=== PATIENT | female | born 1960 | race Caucasian/White ===

== ENCOUNTER → 2018-07-15 07:58 | Outpatient (CLI) | payer OTHER, SELFPAY ==
--- NOTE | 2018-07-15 | DI.MG.S_ITS ---
BILATERAL DIGITAL SCREENING MAMMOGRAM 3D/2D WITH CAD: 07/15/2018 CLINICAL: Routine screening. Family history of breast cancer. Comparison is made to exams dated: 07/01/2017 mammogram, 06/16/2016 mammogram, and 06/25/2015 mammogram - [facility]. The tissue of both breasts is heterogeneously dense. This may lower the sensitivity of mammography. Current study was also evaluated with a Computer Aided Detection (CAD) system. No significant masses, calcifications, or other findings are seen in either breast. There has been no significant interval change. IMPRESSION: NEGATIVE There is no mammographic evidence of malignancy. A 1 year screening mammogram is recommended. This exam was interpreted at Station ID: [id number]. NOTE: For mammograms, a report in lay terms will be sent to the patient. Approximately 15% of breast malignancies will not be visualized mammographically. In the management of a palpable breast mass, a negative mammogram must not discourage biopsy of a clinically suspicious lesion. Electronically Signed By: Melvin daniels/serenity:07/17/2018 21:30:37 letter sent: Normal Exam ACR BI-RADS Category 1: Negative 3341F
[2018-07-15 08:18] LABS: Add Manual Diff / Slide Review NO; Basophils Percent Auto 0.7 % (0-2); Eosinophils Percent Auto 1.7 % (2-4); Hemoglobin 14.3 g/dL (12.0-16.0); Lymphocytes Percent Auto 36.8 % (25-40); Mean Corpuscular HGB Conc 34.1 % (30-36); Mean Corpuscular Hemoglobin 32.1 PG (26-34); Mean Corpuscular Volume 94.2 fL (80-100); Monocytes Percent Auto 6.4 % (3-14); Neutrophils Absolute Auto 2700 /uL (3000-5900); Neutrophils Percent Auto 54.4 % (50-75); Platelet Count 228 X10^3/uL (150-400); Red Blood Cell Count 4.46 X10^6/uL (4.0-5.2); Red Cell Distribution Width 12.4 % (11.6-14.8); White Blood Cell Count 4.9 X10^3/uL (4.5-11.0)
[2018-07-15 08:34] LABS: Alanine Aminotransferase 39 IU/L (9-52); Albumin 4.7 g/dL (3.5-5.0); Albumin Globulin Ratio 1.7 (1.0-2.8); Alkaline Phosphatase 55 U/L (38-126); Aspartate Aminotransferase 36 IU/L (14-36); Bilirubin Total 0.8 mg/dL (0.2-1.3); Blood Urea Nitrogen 24 mg/dL (7-17); Calcium 10.2 mg/dL (8.4-10.2); Carbon Dioxide 31 mmol/L (22-32); Chloride 107 mmol/L (98-107); Cholesterol 201 mg/dL (140-199); Estimated Glomerular Filt Rate > 60.0 mL/min (>60); Globulin 2.7 g/dL (1.7-4.1); Glucose 107 mg/dL (70-100); HDL Cholesterol 47 mg/dL (40-60); HEMOLYSIS < 15 (0-50); LDL Cholesterol Calculated 133 mg/dL (<100); Potassium 4.8 mmol/L (3.4-5.1); Sodium 148 mmol/L (137-145); Total Protein 7.4 g/dL (6.3-8.2); Triglycerides 103 mg/dL (35-150)
[2018-07-15 09:31] LABS: Thyroid Stimulating Hormone 0.98 uIU/mL (0.47-4.68)
== END ==
PROVIDERS: Family Provider Internal Medicine; PCP Internal Medicine; Visit Provider Internal Medicine
DX: Z12.31 Encounter for screening mammogram for malignant neoplasm of breast (principal); Z80.3 Family history of malignant neoplasm of breast; E03.9 Hypothyroidism, unspecified; E78.5 Hyperlipidemia, unspecified
CPT/HCPCS: 36415; 77063; 77067; 80053; 80061; 84443; 85025

== ENCOUNTER → 2019-06-15 10:26 | Outpatient (CLI) | payer OTHER, SELFPAY ==
--- NOTE | 2019-06-15 | DI.MG.S_ITS ---
BILATERAL DIGITAL SCREENING MAMMOGRAM 3D/2D WITH CAD: 06/15/2019 CLINICAL: Routine screening. Family history of breast cancer. Comparison is made to exams dated: 07/15/2018 mammogram, 07/01/2017 mammogram, and 06/16/2016 mammogram - [facility]. There are scattered fibroglandular elements in both breasts. Current study was also evaluated with a Computer Aided Detection (CAD) system. No significant masses, calcifications, or other findings are seen in either breast. There has been no significant interval change. IMPRESSION: NEGATIVE There is no mammographic evidence of malignancy. A 1 year screening mammogram is recommended. This exam was interpreted at Station ID: [id number]. NOTE: For mammograms, a report in lay terms will be sent to the patient. Approximately 15% of breast malignancies will not be visualized mammographically. In the management of a palpable breast mass, a negative mammogram must not discourage biopsy of a clinically suspicious lesion. Electronically Signed By: Nirmal simmons/serenity:06/15/2019 11:36:53 letter sent: Normal Exam ACR BI-RADS Category 1: Negative 3341F
== END ==
PROVIDERS: Family Provider Internal Medicine; PCP Internal Medicine; Visit Provider Internal Medicine
DX: Z12.31 Encounter for screening mammogram for malignant neoplasm of breast (principal); Z80.3 Family history of malignant neoplasm of breast
CPT/HCPCS: 77063; 77067

== ENCOUNTER → 2019-08-23 07:46 | Outpatient (CLI) | payer OTHER, SELFPAY ==
--- NOTE | 2019-08-23 | DI.RAD.S_ITS ---
PROCEDURE: XR KNEE LT 3V INDICATIONS: LEFT KNEE PAIN TECHNIQUE: 3 views of the knee were acquired. COMPARISON: [facility], , KNEE 3V LEFT, 09/29/2016, 15:53. FINDINGS: Bones: No fractures or dislocations. Tiny osteophytes. Mild medial compartment joint space narrowing similar the prior exam from 2016. No suspicious bony lesions. Soft tissues: No joint effusion. No suspicious soft tissue calcifications. IMPRESSION: No fracture or dislocation. Mild osteoarthritis most pronounced in the medial compartment. Dictated by: Reilly Lew M.D. on 08/23/2019 at 8:36 Approved by: Reilly Lew M.D. on 08/23/2019 at 8:38
== END ==
PROVIDERS: Family Provider Internal Medicine; PCP Internal Medicine; Visit Provider Internal Medicine
DX: M25.562 Pain in left knee (principal); M17.12 Unilateral primary osteoarthritis, left knee
CPT/HCPCS: 73562

== ENCOUNTER → 2020-06-19 16:42 | Outpatient (CLI) | payer OTHER, SELFPAY ==
--- NOTE | 2020-06-19 16:45 | DI.MG.S_ITS ---
BILATERAL DIGITAL SCREENING MAMMOGRAM 3D/2D WITH CAD: 06/19/2020 CLINICAL: Routine screening. Family history of breast cancer. Comparison is made to exams dated: 06/15/2019 mammogram, 07/15/2018 mammogram, and 07/01/2017 mammogram - [facility]. There are scattered fibroglandular elements in both breasts. Current study was also evaluated with a Computer Aided Detection (CAD) system. No significant masses, calcifications, or other findings are seen in either breast. There has been no significant interval change. IMPRESSION: NEGATIVE There is no mammographic evidence of malignancy. A 1 year screening mammogram is recommended. This exam was interpreted at Station ID: [id number]. NOTE: For mammograms, a report in lay terms will be sent to the patient. Approximately 15% of breast malignancies will not be visualized mammographically. In the management of a palpable breast mass, a negative mammogram must not discourage biopsy of a clinically suspicious lesion. Electronically Signed By: Sanjay blevins/serenity:06/19/2020 17:11:36 letter sent: Normal Exam ACR BI-RADS Category 1: Negative 3341F
== END ==
PROVIDERS: Family Provider Internal Medicine; PCP Internal Medicine; Referring Provider Internal Medicine; Visit Provider Internal Medicine
DX: Z12.31 Encounter for screening mammogram for malignant neoplasm of breast (principal); Z80.3 Family history of malignant neoplasm of breast
CPT/HCPCS: 77063; 77067

== ENCOUNTER → 2020-09-03 11:19 | Outpatient (CLI) | payer OTHER, SELFPAY ==
--- NOTE | 2020-09-03 11:27 | DI.RAD.S_ITS ---
PROCEDURE: XR FINGER RT MIN 2V INDICATIONS: POINTER FINGER RIGHT PAIN TECHNIQUE: AP hand, 2 views of the 2nd finger(s) acquired. COMPARISON: None. FINDINGS: Bones: No fractures or dislocations. No suspicious bony lesions. Soft tissues: No suspicious soft tissue calcifications. IMPRESSION: No trauma found. Mild degenerative osteoarthritic change at the distal interphalangeal joint. Dictated by: Lee Harding M.D. on 09/03/2020 at 11:49 Approved by: Lee Harding M.D. on 09/03/2020 at 11:50
== END ==
PROVIDERS: Family Provider Internal Medicine; PCP Internal Medicine; Referring Provider Internal Medicine; Visit Provider Internal Medicine
DX: M79.644 Pain in right finger(s) (principal)
CPT/HCPCS: 73140

== ENCOUNTER → 2021-06-23 10:26 | Outpatient (CLI) | payer OTHER, SELFPAY ==
--- NOTE | 2021-06-23 | DI.MG.S_ITS ---
BILATERAL DIGITAL SCREENING MAMMOGRAM 3D/2D WITH CAD: 06/23/2021 CLINICAL: Routine screening. Family history of breast cancer. Comparison is made to exams dated: 06/19/2020 mammogram, 06/15/2019 mammogram, and 07/15/2018 mammogram - [facility]. There are scattered fibroglandular elements in both breasts. Current study was also evaluated with a Computer Aided Detection (CAD) system. No significant masses, calcifications, or other findings are seen in either breast. There has been no significant interval change. IMPRESSION: NEGATIVE There is no mammographic evidence of malignancy. A 1 year screening mammogram is recommended. This exam was interpreted at Station ID: [id number]. NOTE: For mammograms, a report in lay terms will be sent to the patient. Approximately 15% of breast malignancies will not be visualized mammographically. In the management of a palpable breast mass, a negative mammogram must not discourage biopsy of a clinically suspicious lesion. Electronically Signed By: Ady velasquez/serenity:06/23/2021 11:08:09 letter sent: Normal Exam ACR BI-RADS Category 1: Negative 3341F
== END ==
PROVIDERS: Family Provider Internal Medicine; PCP Internal Medicine; Referring Provider Internal Medicine; Visit Provider Internal Medicine
DX: Z12.31 Encounter for screening mammogram for malignant neoplasm of breast (principal); Z80.3 Family history of malignant neoplasm of breast
CPT/HCPCS: 77063; 77067

== ENCOUNTER → 2021-06-25 08:45 | Outpatient (CLI) | payer OTHER, SELFPAY ==
[2021-06-25 12:10] LABS: COVID19 -Nasal RAPID Negative (Negative)
== END ==
PROVIDERS: Family Provider Internal Medicine; PCP Internal Medicine; Visit Provider Nurse Practitioner
DX: Z20.822 Contact with and (suspected) exposure to COVID-19 (principal); Z01.812 Encounter for preprocedural laboratory examination
CPT/HCPCS: 87635

== ENCOUNTER 2021-06-27 12:02 | Day surgery (SDC) | payer OTHER, SELFPAY ==
--- NOTE | 2021-06-27 12:18 | P.HP_ITS ---
History of Present Illness History of Present Illness Date Patient Seen: 06/27/21 Chief complaint: SCREENING COLONOSCOPY Narrative: 60 Years Old Female seen today for consideration of a screening colonoscopy. Last colonoscopy 09/02/2011, normal. There have been no lower GI symptoms suggesting disease such as change in bowel habits, bleeding, abdominal pain or anemia. There's been no family history of colon cancer or colon polyps. Overall health issues have been stable, including no major cardiac events for at least 6 weeks. 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 Patient History Medical History Anemia Asthma (~1976) Chicken pox Eczema (~1976) Fractures (~1974) Hypothyroidism (~1966) Plantar warts (~1999) Recurrent sinusitis (~2007) Seasonal allergies (~1976) Seizure (~1966) Surgical History Anesthesia History of tonsillectomy (~1974) Status post hysterectomy (~1990) Family & Social History Family History Child Age: 32 Depression Father Age: 83 Hypertension Hyperlipidemia Depression Osteoporosis Polio Mother Age: 81 Depression Hypertension Hyperlipidemia Tobacco & Substance use: Smoking Status Never smoker Meds Home Medications and Allergies Home Medications Medication Instructions Recorded Confirmed Type magnesium oxide 500 mg tablet 500 mg PO QDAY #0 07/28/16 06/27/21 History multivitamin (Multiple Vitamins) 1 tab PO QDAY #0 07/20/17 06/27/21 History clobetasol 0.05 % topical ointment 0 TOPICAL SEE INSTRUCTIONS #1 tube 09/14/17 01/19/21 Rx estradiol 0.5 mg tablet 0.5 mg PO QDAY #90 tab 07/25/18 06/27/21 Rx fenofibrate 54 mg tablet 108 mg PO DAILY #180 tab 07/25/18 06/27/21 Rx levothyroxine 125 mcg tablet 125 mcg PO QDAY #90 tab 07/25/18 06/27/21 Rx (Synthroid) varicella-zoster glycoE vacc-[id number] 0.5 ml IM ONCE #1 each 07/25/18 01/19/21 Rx adj(PF) 50 mcg/0.5 mL IM susp, kit (Shingrix (PF)) fluticasone propionate 50 1 spray INTRANASAL QDAY #16 gram 09/19/18 06/27/21 Rx mcg/actuation nasal spray,suspension albuterol sulfate 90 mcg/actuation 1 puff INH SEE INSTRUCTIONS PRN 06/27/21 06/27/21 History aerosol inhaler (Ventolin HFA) MDD unknown Allergies Allergy/AdvReac Type Severity Reaction Status Date / Time No Known Drug Allergies Allergy Verified 06/27/21 12:20 Review of Systems Review of Systems Narrative: See HPI. Exam Narrative Exam Narrative: General: well developed, well nourished, in no acute distress, Head: normocephalic and atraumatic, Lungs: normal respiratory effort, clear bilaterally to auscultation, no wheezes rales or rhonchi. Heart: normal rate and regular rhythm, no murmurs, rubs, gallops, or clicks, Abdomen: abdomen soft and non-tender without masses, organomegaly, or abdominal wall hernias, bowel sounds positive. Skin: intact without suspicious lesions or rashes, Psych: alert and cooperative; normal mood and affect; normal attention span and concentration; cognition, remote and recent memory appear to be intact, Assessment & Plan Assessment & Plan narrative: 1. Screening for colon cancer Plan for colonoscopy. The nature and character of the procedure as well as anticipated results were discussed. The possibility of not completing the procedure was also discussed. Possible complications including aspiration pneumonia, bleeding, perforation and reaction to medications either for sedation or preparation and missed lesions were discussed. Questions were answered and proceeding to the colonoscopy was elected. Informed consent signed. I sincerely appreciate the referral allowing me to participate in this patient's care. Please contact me with any questions or concerns.
--- NOTE | 2021-06-27 12:20 | PM.OP.ENDO ---
Operative Date/Time/Diagnoses Date of procedure: 06/27/21 Procedure Notes SCOAP/Timeout: 1:57 p.m. Procedure in detail: ENDOSCOPIST: Mariah De La Cruz MD Sedation RN: Tiffanie Espinoza RN Sedation start time: 1:58 p.m. Sedation end time: 2:17 p.m. PROCEDURE: Colonoscopy INDICATIONS: 1. Screening for colon cancer MEDICATION: Levsin 0.125 mg sublingual, incremental doses of Versed and fentanyl until appropriate level sedation achieved. ASA CLASS: 2 CECAL WITHDRAWAL TIME: 6 minutes COMPLICATIONS: None. EXTENT OF PROCEDURE: Cecum. QUALITY OF PREP: Good with portions of liquid stool. PROCEDURE: Prior to insertion of the colonoscope, a digital rectal examination was accomplished with circumferential palpation of the distal rectal mucosa without significant findings being noted. The high-definition pediatric colonoscope was passed into the rectum in the usual fashion and advanced over to the cecum without difficulty. The ileocecal valve, appendiceal stoma, and medial wall all could be inspected and no abnormalities were seen. ASCENDING COLON: As the colonoscope was withdrawn, care was taken to expose and inspect the haustral folds and no abnormalities were seen. HEPATIC FLEXURE: Normal, no polyps, diverticula or other abnormalities. TRANSVERSE COLON: Normal, no polyps, diverticula or other abnormalities. DESCENDING COLON: Normal, no polyps, diverticula or other abnormalities. SIGMOID COLON: Normal, no polyps, diverticula or other abnormalities. RECTUM: Normal. J maneuver was produced. There was no significant perianal disease. The J maneuver was broken. The remainder of the rectum was inspected and there was no external hemorrhoid disease. The scope was withdrawn. IMPRESSION: 1. Normal colonoscopy PLAN: 1. Repeat colonoscopy in 10 years. The possibility of a missed lesion including a malignancy has been discussed with the patient previously. Potential alarm symptoms have been discussed and should be reported immediately.
[2021-06-27 12:26] VITALS: BMI 31.1
[2021-06-27 12:48] VITALS: BP 129/72; PULSE 52; RESP 16; TEMP 36.3; O2SAT 97
[2021-06-27] MEDS: LACTATED RINGERS 1,000 ML 200 ML IV (12:53)
[2021-06-27] MEDS: HYOSCYAMINE 0.125 MG TABLET PO (12:57)
[2021-06-27] MEDS: fentaNYL 250 MCG/5 ML INJ IV (14:22)
[2021-06-27] MEDS: MIDAZOLAM 5 MG/5 ML VIAL IV (14:22)
[2021-06-27 14:23] VITALS: BP 110/58; PULSE 63; RESP 18; TEMP 36.4; O2SAT 97
[2021-06-27 14:28] VITALS: BP 105/64; PULSE 43; RESP 16; O2SAT 95
[2021-06-27 14:33] VITALS: BP 113/65; PULSE 42; RESP 18; O2SAT 95
== END 2021-06-27 14:55 | disposition home or self-care (01) ==
PROVIDERS: Family Provider Internal Medicine; PCP Internal Medicine; Referring Provider Student in an Organized Health Care Education/Training Program; Visit Provider Student in an Organized Health Care Education/Training Program
PROC: 0DJD8ZZ Inspection of Lower Intestinal Tract, Via Natural or Artificial Opening Endoscopic (ICD-10-PCS; CPT 45378; principal; 2021-06-27 13:45)
DX: Z12.11 Encounter for screening for malignant neoplasm of colon (principal)
CPT/HCPCS: 45378; J2250; J3010

== ENCOUNTER → 2022-06-24 10:10 | Outpatient (CLI) | payer OTHER, SELFPAY ==
--- NOTE | 2022-06-24 | DI.MG.S_ITS ---
BILATERAL DIGITAL SCREENING MAMMOGRAM 3D/2D WITH CAD: 06/24/2022 CLINICAL: Routine screening. Family history of breast cancer. Comparison is made to exams dated: 06/23/2021 mammogram, 06/19/2020 mammogram, and 06/15/2019 mammogram - [facility]. There are scattered fibroglandular elements in both breasts. Current study was also evaluated with a Computer Aided Detection (CAD) system. No significant masses, calcifications, or other findings are seen in either breast. There has been no significant interval change. IMPRESSION: NEGATIVE There is no mammographic evidence of malignancy. A 1 year screening mammogram is recommended. Based on the Tyrer Cuzick model (a risk assessment model) the patient's lifetime risk is 9.6% and her 10 year risk is 4.0%. According to the ACR, ACS, and NCCN guidelines, an annual breast MRI exam along with mammogram is recommended if the patient's lifetime risk is 20% or greater. This exam was interpreted at Station ID: [id number]. NOTE: For mammograms, a report in lay terms will be sent to the patient. Approximately 15% of breast malignancies will not be visualized mammographically. In the management of a palpable breast mass, a negative mammogram must not discourage biopsy of a clinically suspicious lesion. Electronically Signed By: Robbie Hicks M.D., jr/serenity:06/24/2022 14:14:46 letter sent: Normal Exam ACR BI-RADS Category 1: Negative 3341F
== END ==
PROVIDERS: Family Provider Internal Medicine; PCP Internal Medicine; Referring Provider Internal Medicine; Visit Provider Internal Medicine
DX: Z12.31 Encounter for screening mammogram for malignant neoplasm of breast (principal); Z80.3 Family history of malignant neoplasm of breast
CPT/HCPCS: 77063; 77067

== ENCOUNTER → 2023-03-23 16:54 | Outpatient (CLI) | payer OTHER, SELFPAY ==
--- NOTE | 2023-03-23 16:56 | DI.RAD.S_ITS ---
PROCEDURE: XR ANKLE RT MIN 3V INDICATIONS: Achilles pain on the right TECHNIQUE: 3 views of the ankle were acquired. COMPARISON: [facility] [place], CR, XR FOOT 3+ VIEWS RIGHT, 04/21/2021, 9:58. FINDINGS: Bones: No acute fractures or dislocations. Full-thickness cartilage loss is seen at the medial aspect of the mortise joint with subchondral sclerosis and resulting medial tilting of the talus. Small marginal osteophytes are present. Degenerative changes are also seen at the tarsometatarsal joints and to a lesser extent the navicular cuneiform articulations. No suspicious bony lesions. Tiny plantar calcaneal enthesophyte. Soft tissues: Achilles stripe appears to be within normal limits. IMPRESSION: 1. Severe osteoarthrosis at the medial aspect of the mortise joint. 2. No acute osseous abnormality. Approved by: Sanjay Chambers M.D. on 03/24/2023 at 10:07
== END ==
PROVIDERS: Family Provider Internal Medicine; PCP Internal Medicine; Referring Provider Internal Medicine; Visit Provider Internal Medicine
DX: M19.071 Primary osteoarthritis, right ankle and foot (principal); M25.571 Pain in right ankle and joints of right foot
CPT/HCPCS: 73610

== ENCOUNTER → 2023-06-24 09:55 | Outpatient (CLI) | payer OTHER, SELFPAY ==
--- NOTE | 2023-06-24 | DI.MG.S_ITS ---
BILATERAL DIGITAL SCREENING MAMMOGRAM 3D/2D WITH CAD: 06/24/2023 CLINICAL: Routine screening. Comparison is made to exams dated: 06/24/2022 mammogram, 06/23/2021 mammogram, and 06/19/2020 mammogram - [facility]. There are scattered areas of fibroglandular density in both breasts (category b / 25%-50% glandular tissue). Current study was also evaluated with a Computer Aided Detection (CAD) system. No significant masses, calcifications, or other findings are seen in either breast. There has been no significant interval change. IMPRESSION: NEGATIVE There is no mammographic evidence of malignancy. A 1 year screening mammogram is recommended. Based on the Tyrer Cuzick model (a risk assessment model) the patient's lifetime risk is 9.4% and her 10 year risk is 3.9%. According to the ACR, ACS, and NCCN guidelines, an annual breast MRI exam along with mammogram is recommended if the patient's lifetime risk is 20% or greater. This exam was interpreted at Station ID: [id number]. NOTE: For mammograms, a report in lay terms will be sent to the patient. Approximately 15% of breast malignancies will not be visualized mammographically. In the management of a palpable breast mass, a negative mammogram must not discourage biopsy of a clinically suspicious lesion. Electronically Signed By: Lucy mendenhall/serenity:06/24/2023 14:23:01 letter sent: Normal Exam ACR BI-RADS Category 1: Negative 3341F
== END ==
PROVIDERS: Family Provider Internal Medicine; PCP Internal Medicine; Referring Provider Internal Medicine; Visit Provider Internal Medicine
DX: Z12.31 Encounter for screening mammogram for malignant neoplasm of breast (principal)
CPT/HCPCS: 77063; 77067

== ENCOUNTER → 2024-06-27 09:21 | Outpatient (CLI) | payer OTHER, SELFPAY ==
--- NOTE | 2024-06-27 09:24 | DI.MG.S_ITS ---
BILATERAL DIGITAL SCREENING MAMMOGRAM 3D/2D WITH CAD: 06/27/2024 CLINICAL: Routine screening. Family history of breast cancer. Comparison is made to exams dated: 06/24/2023 mammogram, 06/24/2022 mammogram, and 06/23/2021 mammogram - [facility]. There are scattered areas of fibroglandular density in both breasts (category b / 25%-50% glandular tissue). Current study was also evaluated with a Computer Aided Detection (CAD) system. No significant masses, calcifications, or other findings are seen in either breast. There has been no significant interval change. IMPRESSION: NEGATIVE There is no mammographic evidence of malignancy. A 1 year screening mammogram is recommended. Based on the Tyrer Cuzick model (a risk assessment model) the patient's lifetime risk is 9.1% and her 10 year risk is 4.0%. According to the ACR, ACS, and NCCN guidelines, an annual breast MRI exam along with mammogram is recommended if the patient's lifetime risk is 20% or greater. This exam was interpreted at Station ID: [id number]. NOTE: For mammograms, a report in lay terms will be sent to the patient. Approximately 15% of breast malignancies will not be visualized mammographically. In the management of a palpable breast mass, a negative mammogram must not discourage biopsy of a clinically suspicious lesion. Electronically Signed By: Lucy Madden M.D., Ph.D. joanne/serenity:06/27/2024 12:43:34 letter sent: Normal Exam ACR BI-RADS Category 1: Negative 3341F
== END ==
PROVIDERS: Family Provider Internal Medicine; PCP Internal Medicine; Referring Provider Internal Medicine; Visit Provider Internal Medicine
DX: Z12.31 Encounter for screening mammogram for malignant neoplasm of breast (principal); Z80.3 Family history of malignant neoplasm of breast; R92.323 Mammographic fibroglandular density, bilateral breasts
CPT/HCPCS: 77063; 77067

== ENCOUNTER → 2024-08-07 09:32 | Outpatient (CLI) | payer OTHER, SELFPAY ==
--- NOTE | 2024-08-07 09:35 | EKG_ITS ---
[address] [address] Test Date: 2024-08-07 Pat Name: Dorie Aponte Department: [facility] Room: Gender: Female [employer] Asset Protection Manager: JACQUELINE : 1960 Requested By: Order Number: [id number] Reading MD: Adan Reyes MD Measurements Intervals [place] Rate: 61 P: 55 AR: 164 QRS: -9 QRSD: 108 T: 28 QT: 424 QTc: 426 Interpretive Statements Normal sinus rhythm with sinus arrhythmia Minimal voltage criteria for LVH, may be normal variant ( Phong product ) Electronically Signed On 08-07-2024 12:09:04 PDT by Adan Reyes MD
[2024-08-07 10:24] LABS: Add Manual Diff / Slide Review NO; Basophils Absolute Auto 0 /uL (0-100); Basophils Percent Auto 0.7 % (0-2); Eosinophils Absolute Auto 200 /uL (0-450); Eosinophils Percent Auto 3.7 % (2-4); Hematocrit 37.4 % (36-46); Hemoglobin 12.9 g/dL (12.0-16.0); Lymphocytes Absolute Auto 1700 /uL (1100-4500); Lymphocytes Percent Auto 39.8 % (25-40); Mean Corpuscular HGB Conc 34.6 % (30-36); Mean Corpuscular Volume 95.4 fL (80-100); Monocytes Absolute Auto 300 /uL (0-900); Monocytes Percent Auto 7.8 % (3-14); Neutrophils Absolute Auto 2100 /uL (1500-7000); Platelet Count 183 X10^3/uL (150-400); Red Blood Cell Count 3.92 X10^6/uL (4.0-5.2); Red Cell Distribution Width 12.4 % (11.6-14.8); White Blood Cell Count 4.4 X10^3/uL (4.5-11.0)
[2024-08-07 10:33] LABS: Hemoglobin A1C% w Est Avg Glu 4.8 % (4.0-6.0)
[2024-08-07 10:58] LABS: BUN Creatinine Ratio 25.8 (6-22); Blood Urea Nitrogen 16 mg/dL (7-17); Calcium 9.6 mg/dL (8.4-10.2); Carbon Dioxide 25 mmol/L (22-32); Chloride 107 mmol/L (98-107); Estimated Glomerular Filt Rate > 60 mL/min (>60); Glucose 101 mg/dL (80-110); HEMOLYSIS < 15 (0-50); Potassium 4.3 mmol/L (3.4-5.1); Sodium 140 mmol/L (137-145)
== END ==
PROVIDERS: Family Provider Internal Medicine; PCP Internal Medicine; Referring Provider Orthopaedic Surgery Foot and Ankle Surgery; Visit Provider Orthopaedic Surgery Foot and Ankle Surgery
DX: Z01.818 Encounter for other preprocedural examination (principal); Z01.812 Encounter for preprocedural laboratory examination; R73.9 Hyperglycemia, unspecified
CPT/HCPCS: 36415; 80048; 83036; 85025; 93005; 93010

== ENCOUNTER → 2024-11-06 15:31 | Outpatient (CLI) | payer OTHER, SELFPAY ==
--- NOTE | 2024-11-06 15:35 | DI.CT.S_ITS ---
PROCEDURE: CT LE LT W CON INDICATIONS: ARTHRITIS OF LEFT ANKLE TECHNIQUE: Noncontrast 1-1.5 mm axial sections acquired from the distal femur to the plantar foot, with coronal reformats. For radiation dose reduction, the following was used: automated exposure control, adjustment of mA and/or kV according to patient size. COMPARISON: [facility] [place], CR, XR KNEE 4+ VIEWS LEFT, 03/03/2024, 10:00. [facility] [place], CR, XR KNEE 4+ VIEWS LEFT, 10/27/2024, 8:41. FINDINGS: Image quality: There is expected metal streak artifact related to the arthroplasty that obscures structures at the same level despite the use of artifact reduction techniques. Diagnostic information is obtained. Bones: Postsurgical changes are seen from total knee arthroplasty with associated metal artifact that obscures structures at the same level. Hardware components are in expected positions without definite signs of loosening. No acute osseous abnormality. Severe fear joint space narrowing is seen at the medial aspect of the mortise joint with subchondral sclerosis and marginal osteophyte formation. This results in mild talar tilting. Severe degenerative changes are seen at the 1st metatarsophalangeal joint with subchondral cystic changes, marginal osteophytes, and remodeling of the articular surfaces. Moderate degenerative changes throughout the interphalangeal joints of the toes. Soft tissues: Moderate left knee effusion. Small tibiotalar effusion. The articular cartilages, ligaments, and tendons are not well evaluated with CT. The lower leg and foot musculature is within normal limits. No suspicious soft tissue mass identified. IMPRESSION: 1. Postsurgical changes from total knee arthroplasty with hardware components in expected positions. Moderate left knee effusion. 2. Severe degenerative changes at the medial aspect of the tibiotalar joint. Small joint effusion. 3. 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 Approved by: Sanjay Chambers M.D. on 11/07/2024 at 10:44
== END ==
PROVIDERS: Family Provider Internal Medicine; PCP Internal Medicine; Referring Provider Orthopaedic Surgery Foot and Ankle Surgery; Visit Provider Orthopaedic Surgery Foot and Ankle Surgery
DX: M19.072 Primary osteoarthritis, left ankle and foot (principal); M25.462 Effusion, left knee; Z96.652 Presence of left artificial knee joint
CPT/HCPCS: 73700

== ENCOUNTER 2024-12-20 06:28 | Day surgery (SDC) | payer OTHER, SELFPAY ==
[2024-12-13 12:10] VITALS: BMI 32.7
[2024-12-20] VITALS (12 sets, daily range): BP systolic 108–140; BP diastolic 59–82; PULSE 69–104; RESP 10–18; TEMP 36.2–36.9; O2SAT 94–99; BMI 30.7
--- NOTE | 2024-12-20 | DI.RAD.S_ITS ---
PROCEDURE: XR ANKLE LT 2V INDICATIONS: Total Ankle Arthro, Left TECHNIQUE: 3 views of the ankle were acquired. COMPARISON: [facility] [place], CR, XR ANKLE 3 VIEWS WEIGHT BEARING LEFT, 02/16/2024, 9:16. FINDINGS: Bones: Postsurgical changes compatible with tibiotalar joint arthroplasty. Hardware components are in expected position. Fixation screw in the lateral malleolus. No fractures or dislocations. Ankle mortise is normally aligned. No suspicious bony lesions. Soft tissues: No tibiotalar joint effusion. Achilles tendon appears normal. IMPRESSION: Expected postsurgical change for left tibiotalar joint arthroplasty. Dictated by: Nella Curran MD, PhD on 12/20/2024 at 10:49 Approved by: Nella Curran MD, PhD on 12/20/2024 at 10:51
--- NOTE | 2024-12-20 06:56 | PM.PREOP ---
Pre-operative Note Interval Note History & Physical reviewed/Exam performed by Physician: Yes Changes to H&P: No
[2024-12-20] MEDS: CELECOXIB 200 MG CAPSULE PO (07:13)
[2024-12-20] MEDS: GABAPENTIN 600 MG TABLET PO (07:13)
[2024-12-20] MEDS: ACETAMINOPHEN 325 MG TABLET 975 MG PO (07:14)
[2024-12-20] MEDS: LACTATED RINGERS 1,000 ML 42 ML IV (07:14)
[2024-12-20] MEDS: FAMOTIDINE 20 MG/2 ML VIAL IV (07:14)
[2024-12-20] MEDS: SCOPOLAMINE 1 PATCH TOP (07:31)
--- NOTE | 2024-12-20 07:34 | PM.OP.1 ---
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 She has failed conservative treatments with bracing, injections shoe modifications and oral anti-inflammatories. She has been indicated for total ankle arthroplasty to preserve motion and allow improved function. The risks and benefits of the procedure have been discussed with the patient and given the opportunity to ask questions. The risks of surgery include but are not limited to infection, malunion, nonunion, persistence of pain, damage to nerves and blood vessels, posttraumatic arthritis, DVT, PE, cardiopulmonary complications and . The patient expressed a thorough understanding of the risks and benefits of surgery and has elected to proceed. Consent was signed. During the operation, the services of a physician surgical services assistant were medically indicated and necessary to provide the exposure of the operative site for the surgical procedure and to maintain the limb in a proper position to carry out the operation safely and efficiently. Without a qualified culinary assistant being present this would extended the operative procedure and made the procedure technically more difficult to perform. Surgeon: Naty Nolan Medical Oncology Physician: Renan Fang Operative Notes Findings: End-stage varus ankle arthritis, left. Closure Type: primary Specimen(s): none sent Prosthetic devices, grafts, tissues, transplants, or devices: Hanna 28 [place] 3D total ankle replacement tibial tray arc size 1 long [place] 3D talus left size 1 narrow flat [place] 3D ankle polyethylene insert size 1 thickness 7 vitamin-E ultra high molecular weight polyethylene Medial malleolus screw 3.5 x 44 mm fully-threaded headed screw Estimated Blood Loss (mL): 30 Tourniquet time (min): 104 Procedure in detail: Patient was seen in the preoperative area the site of surgery was marked informed consent confirmed. This was the left ankle. Patient was brought to the operating room by the anesthesia team. A preoperative block was placed for postoperative pain control. This was placed by the anesthesia team. The patient was positioned supine on operative table. All bony prominences were well padded. An SCD was placed on the contralateral lower extremity. An ipsilateral thigh bump was applied. And a stack of blankets was placed below the operative extremity with care to make sure the heel was hanging free. The left lower extremity was then prepped and draped in the standard sterile fashion a formal time-out procedure was performed confirming the patient's side and site of surgery administration of the appropriate preoperative antibiotic. All were in agreement. The Esmarch was then used for exsanguination the tourniquet raised on the thigh to 250 mmHg. Attention turned to the left ankle. Standard landmarks for a 10 cm incision for the anterior approach the ankle was performed just about 1 cm lateral to the tibial crest to the level of the talonavicular joint. This was taken down through the skin and subcutaneous tissue. The extensor retinaculum was then divided. Care was taken to visualize and protect the superficial peroneal nerve branch and retract this laterally. The interval between the tibialis anterior and the EHL was demonstrated, and the EHL and neurovascular bundle was retracted laterally and the tibialis anterior medially. The joint was exposed and the Bovie cautery was used to subperiosteally dissect out the joint. Next the apex 3D guide for the tibia was brought in and the applied to the bone and secured in place with 1 pin and then checked on AP fluoroscopy and then the 2nd pin was applied and these were verified in the AP and lateral planes for appropriate placement. Next the cut block guide was applied and checked for position and slope and then pinned in place. Then the drill holes for the arc tibia of the toes and size were completed with the green guide and then the black guide and then the reciprocal saw was brought in for the gutter cuts. Then the coupled cut to the talus was performed after the talus was pinned neutral and checked on AP and lateral fluoroscopy. The sagittal saw was used for the flat cut talus. Then the tibia was finished with a sized rendon drill cut guides and then the guide was flipped over and the final drill holes completed. At this point the tibia and talus bone resections were removed. And the spacer block was applied to confirm appropriate resection. Next the guide for the tibial tray was applied and pinned in place and the peg holes were reamed on drill and confirmed on lateral fluoroscopy for appropriate depth. Once this was completed the talus tray was floated and checked for alignment and then pinned in place with the shoulder pins these were finally tightened on hand with a T-handle. Meticulous care was taken to make sure the medial and lateral gutters were clear. Once this was positioned appropriate the drill holes for the pegs on the talus implant were drilled. Then all the implants were removed and the final tibia tray was applied. 1 cc of demineralized graft was applied to the crevices on the ingrowth tray. The tibial tray was then inserted in place and confirmed appropriate alignment on fluoroscopy. Attention was then turned to the talus which was placed in the standard fashion. Then the trial 7 mm poly was applied. This achieved excellent alignment and stability. Range of motion was greater than 10? dorsiflexion with the knee extended 40? plantar flexion and was stable to varus and valgus stress with no requirements for additional ligamentous procedures. At this time the final poly was placed, this was a 7 mm poly. Next given the small size of the ankle a prophylactic medial malleolus screw was placed to prevent stress fracture. A separate incision was made medially for this wire for the cannulated screw was positioned and confirmed at appropriate positioning on AP and lateral x-rays. This was then drilled and measured and a 44 mm 3.5 cannulated headed screw from the paragon 28 set was applied. Final fluoroscopic x-rays an AP mortise and lateral were obtained that demonstrated appropriate hardware alignment and good clear gutters. At this point tourniquet was released hemostasis was achieved. The wounds were closed in a layered fashion including the extensor retinaculum. And the skin was closed with nylon suture. 30 cc of 0.25% Marcaine with epinephrine were injected for local anesthesia. A sterile dressing was applied with Xeroform gauze Webril and a bulky Fong splint in neutral position. The patient was awoken from anesthesia and taken to the recovery area in good condition there were no immediate complications from this procedure. Counts were correct. Complications: none Post-operative Condition: stable Disposition: PACU Plan for aftercare: Nonweightbearing x2 weeks. Elevated heart level or above. Aspirin 325 mg daily for DVT prophylaxis. Follow up in [facility] 2 -3 weeks for wound check.
[2024-12-20] MEDS: CEFAZOLIN 2 GM/100 ML PREMIX 100 ML IV (08:05)
--- NOTE | 2024-12-20 08:08 | SUR.PREOP ---
Block start time 0741, with at time out at 0737. Monitoring initiated and maintained throughout procedure. Oxygen and medications given per anesthesiologist instructions. Patient remained stable throughout procedure, no adverse reactions noted. Block end time 0752.
--- NOTE | 2024-12-20 08:30 | SUR.OPER ---
Supine on padded OR bed, head on pillow, arms secured on padded arm boards at <90 degrees abduction, legs uncrossed, safety belt at abdomen, tape over blanket over right lower leg. Left leg under control of surgeon, blanket bump under left hip.
[2024-12-20] MEDS: BUPIVACAINE 0.25% W/ EPI 30 ML VIAL INJ (08:41)
[2024-12-20] MEDS: LACTATED RINGERS 1,000 ML 120 ML IV (10:30)
== END 2024-12-20 12:37 | disposition home or self-care (01) ==
PROVIDERS: Family Provider Internal Medicine; PCP Registered Nurse; Referring Provider Orthopaedic Surgery Foot and Ankle Surgery; Visit Provider Orthopaedic Surgery Foot and Ankle Surgery
PROC: (CPT 27702; principal; 2024-12-20 07:45)
DX: M19.072 Primary osteoarthritis, left ankle and foot (principal); G89.18 Other acute postprocedural pain
CPT/HCPCS: 27702; 64450; 73600; 76000; C1776; C9359; J0690; J1100; J1171; J2250; J2405; J2704; J2765; J3010

== ENCOUNTER → 2025-10-25 17:01 | Outpatient (CLI) | payer OTHER, SELFPAY ==
--- NOTE | 2025-10-25 17:06 | DI.RAD.S_ITS ---
PROCEDURE: XR KNEE RT 4V INDICATIONS: right knee sprain TECHNIQUE: 3 views of the knee were acquired. COMPARISON: [facility], , XR KNEE LT 3V, 08/23/2019, 8:03. [facility], , KNEE 3V LEFT, 09/29/2016, 15:53. FINDINGS: Bones: No fractures or dislocations. No suspicious bony lesions. Tricompartmental joint space narrowing with associated osteophytosis. Soft tissues: No joint effusion. No suspicious soft tissue calcifications. IMPRESSION: No acute bony abnormality or significant effusion. 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 Dictated by: Mohsen Rawls M.D. on 10/26/2025 at 12:44 Approved by: Mohsen Rawls M.D. on 10/26/2025 at 12:46
== END ==
PROVIDERS: Family Provider Internal Medicine; PCP Registered Nurse; Referring Provider Registered Nurse; Visit Provider Registered Nurse
DX: S83.421A Sprain of lateral collateral ligament of right knee, initial encounter (principal); M17.11 Unilateral primary osteoarthritis, right knee; X58.XXXA Exposure to other specified factors, initial encounter
CPT/HCPCS: 73564